=== PATIENT | female | born 1965 | race African-American/Black ===

== ENCOUNTER 2016-07-12 03:32 | Emergency (ER) | payer OTHER ==
[2016-07-12] MEDS ORDERED: ONDANSETRON HCL 4 MG TAB.RAPDIS PO ONE (04:04)
[2016-07-12] MEDS ORDERED: KETOROLAC TROMETHAMINE 60 MG/2 ML VIAL IM ONE (04:04)
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
--- NOTE | 2016-07-12 05:53 | Diagnostic Imaging Report ---
Name: HILDA ROBLEDO ~~ ~~ : [birth year] ~~ Acc #: [id number]~~ DOS: Jul 12, 2016 3:50:29 AM CDT ~~ Mod: CT\SR ~~ Desc: CT ABD & PELVIS W/O CO 2 of 2 [place]~ [address] [address] ~ ~ ~ ~ Report Submission Date: Jul 12, 2016 4:51:55 AM CDT Patient ~ Study Name: HILDA ROBLEDO ~ Date: Jul 12, 2016 3:50:29 AM CDT ~ Modality Type: CT\SR Gender: F ~ Description: CT ABD & PELVIS W/O CO : [birth year] ~ Institution: [facility] Physician: [place] ~ ~ ~ ~ HISTORY: ~ 61-year-old female with left flank pain, nausea, history of urolithiasis COMPARISON: None available TECHNIQUE: Helical CT images of the abdomen and pelvis were performed without contrast. Sagittal and coronal reformatted images were obtained. FINDINGS: Urinary tract: ~There is a 4 mm calculus which is either in the left ureterovesicle junction versus urinary bladder lumen (image 296, series 2). ~ There is associated moderate left hydronephrosis, hydroureter, and left perinephric fat stranding. ~There are bilateral nonobstructing renal calculi. ~ No right ureteral calculi, hydronephrosis, or hydroureter. Miscellaneous: ~There are patchy ground-glass opacities in the bilateral lower lobes, slightly greater on the left. ~There is a moderate-sized paraesophageal hiatal hernia with estimated 1/4 of the stomach intrathoracic. ~The noncontrast liver, spleen, pancreas, adrenal glands are unremarkable. ~The gallbladder is surgically absent. ~No abnormal bowel dilatation, free air, free fluid, or suspicious adenopathy. ~There is descending and sigmoid colon diverticulosis without evidence of acute diverticulitis. ~The appendix is not dilated and does not appear inflamed. There is a fatty right inguinal indirect hernia. There are mild to moderate degenerative changes of the left hip. ~There is advanced degenerative disc disease L5-S1 with significant neural foraminal stenosis on the right at this level. IMPRESSION: 1. ~4 mm calculus is either in the left ureterovesicle junction versus urinary bladder lumen. ~There is associated moderate left hydronephrosis and hydroureter. ~ 2. ~Bilateral nonobstructing nephrolithiasis. 3. ~Postoperative changes of cholecystectomy. 4. ~Moderate size hiatal hernia. 5. ~Patchy ground-glass opacities in the bilateral lower lobes are nonspecific and may be related to scarring, interstitial lung disease, or atypical pneumonia. 6. ~Fatty right inguinal indirect hernia incidentally noted. 7. ~No evidence of bowel obstruction, acute appendicitis, or other acute process in the abdomen or pelvis. ~ Electronically signed on Jul 12, 2016 4:51:55 AM CDT by: Reinier PIERSON
[2016-07-12 05:56] VITALS: BP 92/56
== END 2016-07-12 05:50 | disposition home or self-care (01) ==
LOC: ED 03:32
DX: S39.012A Strain of muscle, fascia and tendon of lower back, initial encounter (principal); V87.7XXA Person injured in collision between other specified motor vehicles (traffic), initial encounter; Y93.9 Activity, unspecified; Y99.9 Unspecified external cause status
CPT/HCPCS: 72100; A9270; J1885; 96372; 99283